=== PATIENT | male | born 1965 | race Caucasian/White ===

== ENCOUNTER 2017-11-30 18:44 | Emergency (ER) | payer MEDICAID, OTHER ==
[2017-11-30] MEDS: LIDOCAINE 1% (MDV) 20 ML INJ SC (22:15)
[2017-11-30] MEDS: HYDROCODONE/APAP (5/325) TAB PO (22:15)
[2017-11-30] MEDS: CEFAZOLIN 1 GM INJ IM (22:15)
== END 2017-11-30 23:13 | disposition left against medical advice (07) ==
LOC: FTE 18:44
DX: S80.261A Insect bite (nonvenomous), right knee, initial encounter (principal); F17.210 Nicotine dependence, cigarettes, uncomplicated; W57.XXXA Bitten or stung by nonvenomous insect and other nonvenomous arthropods, initial encounter; Y92.9 Unspecified place or not applicable
CPT/HCPCS: 96372; 99284-25